=== PATIENT | female | born 1980 | race Caucasian/White ===

== ENCOUNTER 2018-08-14 18:56 | Emergency (ER) | payer OTHER ==
[~2018-08-14] VITALS: Ht 160 cm; Wt 60.3 kg
== END 2018-08-14 23:35 | disposition home or self-care (01) ==
LOC: ER 18:56
DX: K29.70 Gastritis, unspecified, without bleeding (principal)

== ENCOUNTER 2019-06-04 06:15 | Emergency (ER) | payer OTHER ==
[~2019-06-04] VITALS: Ht 160 cm; Wt 61.7 kg
[2019-06-04] MEDS ORDERED: STOOL SOFTENER1 EACH PO (11:55)
== END 2019-06-04 12:03 | disposition home or self-care (01) ==
LOC: ER 06:15
DX: K59.09 Other constipation (principal); R10.33 Periumbilical pain; R06.02 Shortness of breath

== ENCOUNTER 2021-08-04 12:28 | Outpatient (CLI) | payer OTHER ==
[~2021-08-04 12:28] MED LIST: STOOL SOFTENER1 EACH PO
== END 2021-08-04 12:31 | disposition home or self-care (01) ==
LOC: SONOGRAMA 12:28
DX: R10.33 Periumbilical pain (principal)

== ENCOUNTER 2022-06-08 13:59 | Outpatient (CLI) | payer OTHER | END 2022-06-08 14:02 | disposition home or self-care (01) | LOC: SONOGRAMA 13:59 | DX: R10.2 Pelvic and perineal pain (principal) ==

== ENCOUNTER 2023-02-08 11:57 | Outpatient (CLI) | payer OTHER | END 2023-02-08 12:05 | disposition home or self-care (01) | LOC: SONOGRAMA 11:57 | DX: N80.00 Endometriosis of the uterus, unspecified (principal) ==

== ENCOUNTER 2023-04-12 09:06 | Outpatient (CLI) | payer OTHER | END 2023-04-12 09:07 | disposition home or self-care (01) | LOC: NUCLEAR 09:06 | DX: I87.2 Venous insufficiency (chronic) (peripheral) (principal) ==

== ENCOUNTER 2023-04-12 10:26 | Outpatient (CLI) | payer OTHER | END 2023-04-12 10:33 | disposition home or self-care (01) | LOC: SONOGRAMA 10:26 | DX: N60.11 Diffuse cystic mastopathy of right breast (principal); N60.12 Diffuse cystic mastopathy of left breast ==

== ENCOUNTER 2024-02-13 09:22 | Outpatient (CLI) | payer OTHER ==
[~2024-02-13 09:22] MED LIST changes: +NABUMETONE500 MG PO; +NEXIUM20 M1 PO
== END 2024-02-13 09:29 | disposition home or self-care (01) ==
LOC: SONOGRAMA 09:22
DX: M79.641 Pain in right hand (principal)

== ENCOUNTER 2024-04-07 08:40 | Outpatient (CLI) | payer OTHER | END 2024-04-07 08:49 | disposition home or self-care (01) | LOC: MRI 08:40 | DX: R10.33 Periumbilical pain (principal) | CPT/HCPCS: 74183 ==

== ENCOUNTER 2024-12-03 14:39 | Outpatient (CLI) | payer OTHER | END 2024-12-03 14:53 | disposition home or self-care (01) | LOC: MAMO-SONO 14:39 | DX: N64.4 Mastodynia (principal); Z12.31 Encounter for screening mammogram for malignant neoplasm of breast ==

== ENCOUNTER 2024-12-10 11:21 | Emergency (ER) | payer OTHER ==
[~2024-12-10] VITALS: Ht 160 cm; Wt 60.3 kg
[2024-12-10 12:15] VITALS: BP 111/75; O2SAT 100
[2024-12-10] MEDS ORDERED: CEFTRIAXONE SODIUM 1,000 MG VIAL IV ONE (14:15)
[2024-12-10] MEDS ORDERED: CEFTRIAXONE SODIUM 1,000 MG VIAL ONE (14:18)
[2024-12-10 14:50] LABS: BASO % 0.5 % (0.1-1.2); EOS # 0.19 (0.04-0.54); EOS % 4.5 % (0.7-7.0); LYMPH # 1.37 (1.18-3.74); LYMPH % 32.2 % (19.3-53.1); MEAN PLATELET VOLUME 9.40 fl (9.4-12.4); MONO # 0.37 (0.24-0.82); MONO % 8.7 % (4.7-12.5); NEUT # 2.30 (1.56-6.13); NEUT % 53.9 % (34.0-71.1); RED CELL DISTRIBUTION WIDTH 11.5 % (11.6-14.4)
[2024-12-10 15:01] LABS: URINE APPEARANCE Clear; URINE BILIRRUBIN Negative (NEGATIVE); URINE BLOOD Negative; URINE COLOR Yellow; URINE GLUCOSE Negative (NEGATIVE); URINE KETONE Negative (NEGATIVE); URINE LEUKOCYTE Negative; URINE NITRATE Negative; URINE PROTEIN Negative (NEGATIVE); URINE UROBILINOGEN 0.2 E.U./dl
[2024-12-10 15:04] LABS: URINE BACTERIA 33.5 uL (0.0-1933); URINE EPITHELIAL CELLS 1.5 uL (0.0-38.8)
[2024-12-10 15:38] LABS: ALT/SGPT 17.0 U/L (12-78); AST/SGOT 18.0 U/L (15-37); BILIRUBIN TOTAL 0.33 mg/dL (0.3-1.2); BUN CREA RATIO 14.0 (7.0-25.0); CREATININE SERUM 0.69 mg/dL (0.55-1.02); GFR 92.86; GLOBULINA 3.5 G/DL (2.4-3.5); GLUCOSE FASTING 79.0 mg/dL (65-100); OSMOLALITY SERUM 277.0 MOSM/KG (275-295)
[2024-12-10 15:47] LABS: URINE CAST 0.00 uL (0.0-1.40); URINE RBC 1.9 uL (0.0-20.8); URINE WBC 1.3 uL (0.0-23.2)
[2024-12-10] MEDS ORDERED: 0.9 % SODIUM CHLORIDE 1,000 ML IV SCH (16:00)
[2024-12-10] MEDS ORDERED: NORFLEX100MG PO (17:35)
== END 2024-12-10 18:01 | disposition home or self-care (01) ==
LOC: ER 11:21
PROVIDERS: General Practice
DX: R10.2 Pelvic and perineal pain (principal); Z91.011 Allergy to milk products

== ENCOUNTER 2025-02-23 07:53 | Outpatient (CLI) | payer OTHER ==
[~2025-02-23 07:53] MED LIST changes: +NORFLEX100MG PO
== END 2025-02-23 08:01 | disposition home or self-care (01) ==
LOC: MRI 07:53
DX: I72.8 Aneurysm of other specified arteries (principal); M79.18 Myalgia, other site
CPT/HCPCS: 72148; 74185